=== PATIENT | female | born 1965 | race Caucasian/White ===

== ENCOUNTER 2018-10-22 20:47 | Emergency (ER) | payer OTHER ==
[~2018-10-22] VITALS: Ht 149.9 cm; Wt 59.0 kg
[2018-10-22] MEDS ORDERED: DULO60CA45 PO (21:00)
[2018-10-22] MEDS ORDERED: TRAZ-182 PO (21:00)
[2018-10-22] MEDS ORDERED: ZOLP10TA2 PO (21:00)
[2018-10-22] MEDS ORDERED: GABA100C PO (21:00)
--- NOTE | 2018-10-22 21:12 | NUR ---
Pt ambulated out of ER with stable gait for the c/o extreme lower back pain. Pt states she has herniated discs from L3-L5. Pt a/o x 4 and speaking in complete sentences. Safe environment implemented.
--- NOTE | 2018-10-22 21:17 | NUR ---
Dr. Duncan at bedside for MSE.
[2018-10-22] MEDS ORDERED: ONDANSETRON ODT 4 MG TAB.RAPDIS ONE (21:23)
[2018-10-22] MEDS ORDERED: HYDROCODONE/APAP 10-325 MG TABLET ONE (21:24)
[2018-10-22] MEDS ORDERED: ONDANSETRON ODT 4 MG TAB.RAPDIS SL ONE (21:30)
[2018-10-22] MEDS ORDERED: HYDROCODONE/APAP 10-325 MG TABLET PO ONE (21:30)
--- NOTE | 2018-10-22 21:32 | NUR ---
Patient discharged to home in stable conditon. Written and verbal after care instructions given. Patient verbalizes understanding of instructions. Patient instructed not to drive.
[2018-10-22 21:37] VITALS: BP 128/72
== END 2018-10-22 21:35 | disposition home or self-care (01) ==
LOC: ER 20:47
DX: M54.5 Low back pain (principal); Z79.899 Other long term (current) drug therapy
CPT/HCPCS: A4663; Q0162